=== PATIENT | male | born 1960 | race Caucasian/White ===

== ENCOUNTER 2019-01-02 08:24 | Day surgery (SDC) | payer OTHER ==
[~2019-01-02] VITALS: Ht 182.9 cm; Wt 102.9 kg
[2019-01-02] MEDS ORDERED: Aspir 8181 MG (09:17)
[2019-01-02] MEDS ORDERED: Exforge 5-1601 EACH (09:18)
[2019-01-02] MEDS ORDERED: LOVAZA1 GM (09:18)
[2019-01-02] MEDS ORDERED: METF500 (09:19)
[2019-01-02] MEDS ORDERED: PANT40 (09:20)
[2019-01-02] MEDS ORDERED: ATOR10 (09:21)
[2019-01-02] MEDS ORDERED: SYNTHROID150 MCG (09:21)
[2019-01-02] MEDS ORDERED: TRULICITY0.75 MG/0. (09:22)
== END 2019-01-02 10:50 | disposition home or self-care (01) ==
LOC: ORSCSDS 08:24
PROVIDERS: Internal Medicine Gastroenterology
PROC: 0DJD8ZZ Inspection of Lower Intestinal Tract, Via Natural or Artificial Opening Endoscopic (ICD-10-PCS; principal; 2019-01-02 09:45)
DX: Z12.11 Encounter for screening for malignant neoplasm of colon (principal); Z86.010 Personal history of colon polyps; K57.30 Diverticulosis of large intestine without perforation or abscess without bleeding; G47.33 Obstructive sleep apnea (adult) (pediatric); I10 Essential (primary) hypertension; E03.9 Hypothyroidism, unspecified; E11.9 Type 2 diabetes mellitus without complications; Z79.82 Long term (current) use of aspirin; Z79.899 Other long term (current) drug therapy
CPT/HCPCS: 82947; J2704; J7120